=== PATIENT | female | born 1950 | race Caucasian/White ===

== ENCOUNTER → 2017-02-07 | Outpatient (CLI) | payer BC | END | disposition home or self-care (01) | LOC: CFH 10:33 | PROVIDERS: ATTEND Internal Medicine | DX: Z12.31 Encounter for screening mammogram for malignant neoplasm of breast (principal); E04.2 Nontoxic multinodular goiter | CPT/HCPCS: 76536; G0202 ==

== ENCOUNTER → 2017-02-17 | Outpatient (CLI) | payer BC | END | disposition home or self-care (01) | LOC: RAD 08:34 | PROVIDERS: ATTEND Internal Medicine | DX: E04.1 Nontoxic single thyroid nodule (principal); R22.1 Localized swelling, mass and lump, neck | CPT/HCPCS: 76942; 88173 ==